=== PATIENT | male | born 1960 | race Caucasian/White ===

== ENCOUNTER → 2017-04-28 | Outpatient (CLI) | payer OTHER ==
[~2017-04-28] MED LIST: LISINOPRIL 10MG10 MG PO; LISINOPRIL10 MG PO; NOMEDS XX; TAMIFLU75 MG PO
[2017-04-28 10:44] LABS: BUN 23 mg/dL (7-18)
[2017-04-28 10:49] LABS: GFR (ESTIMATED) 77 ML/MIN (>60)
[2017-04-28 11:25] LABS: HEMOGLOBIN 16.9 g/dL (14.1-18.0); LYMPH # 2.5 K/mm3 (0.7-4.5)
== END ==
LOC: LAB 09:55
PROVIDERS: Internal Medicine Adolescent Medicine
DX: E78.5 Hyperlipidemia, unspecified (principal); E53.8 Deficiency of other specified B group vitamins